=== PATIENT | female | born 1940 | race Caucasian/White ===

== ENCOUNTER 2022-12-26 11:28 | Emergency (ER) | payer OTHER ==
[2022-12-26 12:22] VITALS: RESP 18; TEMP 97.6; BMI 25.2
[2022-12-26 16:21] VITALS: BP 132/76; PULSE 78
== END 2022-12-26 16:00 | disposition home or self-care (01) ==
LOC: FER 11:28
DX: S22.41XA Multiple fractures of ribs, right side, initial encounter for closed fracture (principal); W01.198A Fall on same level from slipping, tripping and stumbling with subsequent striking against other object, initial encounter; Y92.000 Kitchen of unspecified non-institutional (private) residence as the place of occurrence of the external cause
CPT/HCPCS: 71101-TC-RT-FY; 71250-TC; 72125-TC; 72128-TC; 72131-TC; 99284-25